=== PATIENT | male | born 1995 | race Hispanic/Latino ===

== ENCOUNTER 2019-11-24 14:31 | Emergency (ER) | payer BC, OTHER ==
[2019-11-25 15:38] LABS: SARS-CoV-2 MS2 Positive; SARS-CoV-2 N Gene Negative; SARS-CoV-2 S Gene Negative; SARS-CoV-2 orf1ab Negative
== END 2019-11-24 15:10 | disposition home or self-care (01) ==
LOC: ERS 14:31
DX: Z20.828 Contact with and (suspected) exposure to other viral communicable diseases (principal)
CPT/HCPCS: 87635; 99283; U0003

== ENCOUNTER 2020-10-06 12:03 | Emergency (ER) | payer BC ==
[2020-10-06] MEDS ORDERED: Ketorolac Tromethamine 30 MG/ML VIAL ONE (14:23)
[2020-10-06 15:18] LABS: #Monocytes 0.6 thou/uL (0.11-0.59); #Neutrophils 5.2 thou/uL (1.40-6.50); %Basophils 0.2 % (0.0-1.0); %Eosinophils 0.1 % (0.0-10.0); %Neutrophils 75.7 % (42.0-75.0); Hemoglobin 14.4 g/dL (14.0-18.0); Mean Corpuscular HGB CONC 31.9 g/dL (32.0-36.0); Mean Corpuscular Hemoglobin 26.5 pg (27.0-31.0); Mean Corpuscular Volume 82.9 fL (78.0-98.0); Mean Platelet Volume 9.8 fL (7.4-10.4); Platelet Count 113 thou/uL (130-400); Red Blood Cell (RBC) Count 5.44 mill/uL (4.70-6.10); White Blood Cell (WBC) Count 6.8 thou/uL (4.8-10.8)
[2020-10-06 15:36] LABS: Large Platelets SLIGHT; MDiff Complete? YES; Platelet Morphology Comment Appears Decreased; RBC Morphology Normal
[2020-10-06 15:41] LABS: ALT (SGPT) 71 U/L (8-55); AST (SGOT) 49 U/L (5-34); Albumin 3.4 g/dL (3.5-5.0); Alkaline Phosphatase 49 U/L (40-110); Anion Gap 10 mmol/L (10-20); BUN (Urea Nitrogen) 9 mg/dL (8.9-20.6); Bilirubin, Total 0.6 mg/dL (0.2-1.2); Calc. Creatinine Clearance 0 mL/min (70-130); Calcium 7.8 mg/dL (7.8-10.44); Carbon Dioxide 26 mmol/L (22-29); Chloride 103 mmol/L (98-107); Globulin 2.9 g/dL (2.4-3.5); Glucose 93 mg/dL (70-105); Potassium 3.9 mmol/L (3.5-5.1); Protein, Total 6.3 g/dL (6.0-8.3); Sodium 135 mmol/L (136-145)
== END 2020-10-06 16:32 | disposition home or self-care (01) ==
LOC: ERS 12:03
DX: U07.1 COVID-19 (principal); I10 Essential (primary) hypertension
CPT/HCPCS: 36415; 71045; 80053; 85025; 93005; 94760; 96374; J1885

== ENCOUNTER 2020-12-05 04:28 | Emergency (ER) | payer OTHER, BC | END 2020-12-05 05:14 | disposition home or self-care (01) | LOC: ERS 04:28 | DX: S80.211A Abrasion, right knee, initial encounter (principal); I10 Essential (primary) hypertension; Z79.899 Other long term (current) drug therapy; V89.2XXA Person injured in unspecified motor-vehicle accident, traffic, initial encounter | CPT/HCPCS: 99284 ==

== ENCOUNTER 2022-07-28 11:02 | Outpatient (CLI) | payer OTHER | END 2022-07-28 11:03 | disposition home or self-care (01) | LOC: SCSRAD 11:02 | PROVIDERS: ATTEND Physician Assistant | DX: M25.562 Pain in left knee (principal); M93.962 Osteochondropathy, unspecified, left lower leg | CPT/HCPCS: 80053; 80061; 81001; 85025 ==

== ENCOUNTER 2022-09-21 10:45 | Outpatient (CLI) | payer BC | END 2022-09-21 10:46 | disposition home or self-care (01) | LOC: BICMRI 10:45 | PROVIDERS: ATTEND Orthopaedic Surgery | DX: M95.8 Other specified acquired deformities of musculoskeletal system (principal); M25.762 Osteophyte, left knee ==